=== PATIENT | male | born 1945 | race Caucasian/White ===

== ENCOUNTER 2023-05-15 08:17 | Outpatient (CLI) | payer OTHER, SELFPAY | END 2023-05-15 08:18 | disposition home or self-care (01) | LOC: RAD 08:21 | PROVIDERS: PCP Chiropractor; Visit Provider Chiropractor | DX: I48.91 Unspecified atrial fibrillation (principal); I34.0 Nonrheumatic mitral (valve) insufficiency | CPT/HCPCS: 93306 ==